=== PATIENT | male | born 1965 | race Caucasian/White ===

== ENCOUNTER → 2017-07-02 11:52 | Outpatient (CLI) | payer OTHER, SELFPAY ==
[2017-07-02 12:21] LABS: Add Manual Diff / Slide Review NO; Basophils Percent Auto 0.7 % (0-2); Eosinophils Percent Auto 2.5 % (2-4); Hematocrit 44.2 % (41-53); Hemoglobin 15.3 g/dL (13.5-17.5); Lymphocytes Percent Auto 29.8 % (25-40); Mean Corpuscular HGB Conc 34.7 % (30-36); Mean Corpuscular Volume 92.2 fL (80-100); Monocytes Percent Auto 9.4 % (3-14); Neutrophils Absolute Auto 2100 /uL (3000-5900); Neutrophils Percent Auto 57.6 % (50-75); Platelet Count 177 X10^3/uL (150-400); Red Blood Cell Count 4.79 X10^6/uL (4.5-5.9); Red Cell Distribution Width 13.2 % (11.6-14.8); White Blood Cell Count 3.6 X10^3/uL (4.5-11.0)
[2017-07-02 12:55] LABS: Alanine Aminotransferase 80 IU/L (21-72); Albumin 4.5 g/dL (3.5-5.0); Albumin Globulin Ratio 1.7 (1.0-2.8); Alkaline Phosphatase 75 U/L (38-126); Aspartate Aminotransferase 49 IU/L (17-59); Bilirubin Total 0.6 mg/dL (0.2-1.3); Calcium 9.5 mg/dL (8.4-10.2); Cholesterol 243 mg/dL (140-199); Estimated Glomerular Filt Rate > 60.0 mL/min (>60); Globulin 2.6 g/dL (1.7-4.1); Glucose 98 mg/dL (70-100); HDL Cholesterol 66 mg/dL (40-60); HEMOLYSIS < 15 (0-50); LDL Cholesterol Calculated 152 mg/dL (<100); Potassium 4.3 mmol/L (3.4-5.1); Sodium 140 mmol/L (137-145); Total Protein 7.1 g/dL (6.3-8.2); Triglycerides 123 mg/dL (35-150)
[2017-07-02 13:25] LABS: TSH w/ Reflex to FT4 2.95 uIU/mL (0.47-4.68)
[2017-07-06 10:26] LABS: Hepatitis A Antibody IgM NONREACTIVE; Hepatitis Acute Panel Interp 0.03; Hepatitis B Core Antibody IgM NONREACTIVE; Hepatitis B Surface Antigen NONREACTIVE; Hepatitis C Antibody NONREACTIVE
== END ==
PROVIDERS: PCP Family Medicine; Visit Provider Family Medicine
DX: E78.2 Mixed hyperlipidemia (principal); E06.3 Autoimmune thyroiditis; Z00.00 Encounter for general adult medical examination without abnormal findings
CPT/HCPCS: 36415; 80053; 80061; 80074; 84443; 85025

== ENCOUNTER → 2018-09-03 08:19 | Outpatient (CLI) | payer OTHER, SELFPAY ==
[2018-09-03 09:20] LABS: Add Manual Diff / Slide Review NO; Basophils Absolute Auto 0 /uL (0-100); Basophils Percent Auto 0.9 % (0-2); Eosinophils Absolute Auto 100 /uL (0-450); Eosinophils Percent Auto 2.7 % (2-4); Hematocrit 43.5 % (41-53); Hemoglobin 15.1 g/dL (13.5-17.5); Lymphocytes Absolute Auto 1100 /uL (1100-4500); Lymphocytes Percent Auto 30.6 % (25-40); Mean Corpuscular HGB Conc 34.7 % (30-36); Mean Corpuscular Hemoglobin 32.9 PG (26-34); Mean Corpuscular Volume 94.7 fL (80-100); Monocytes Absolute Auto 400 /uL (0-900); Monocytes Percent Auto 10.3 % (3-14); Neutrophils Absolute Auto 2000 /uL (1500-7000); Neutrophils Percent Auto 55.5 % (50-75); Platelet Count 206 X10^3/uL (150-400); Red Blood Cell Count 4.59 X10^6/uL (4.5-5.9); Red Cell Distribution Width 13.1 % (11.6-14.8); White Blood Cell Count 3.6 X10^3/uL (4.5-11.0)
[2018-09-03 09:34] LABS: Alanine Aminotransferase 58 IU/L (21-72); Albumin 4.5 g/dL (3.5-5.0); Albumin Globulin Ratio 1.6 (1.0-2.8); Alkaline Phosphatase 67 U/L (38-126); Aspartate Aminotransferase 43 IU/L (17-59); Bilirubin Total 0.6 mg/dL (0.2-1.3); Blood Urea Nitrogen 20 mg/dL (9-20); Calcium 9.5 mg/dL (8.4-10.2); Carbon Dioxide 30 mmol/L (22-32); Chloride 101 mmol/L (98-107); Cholesterol 216 mg/dL (140-199); Estimated Glomerular Filt Rate > 60.0 mL/min (>60); Globulin 2.8 g/dL (1.7-4.1); Glucose 92 mg/dL (70-100); HDL Cholesterol 56 mg/dL (40-60); HEMOLYSIS < 15 (0-50); LDL Cholesterol Calculated 135 mg/dL (<100); Potassium 4.3 mmol/L (3.4-5.1); Sodium 139 mmol/L (137-145); Total Protein 7.3 g/dL (6.3-8.2); Triglycerides 123 mg/dL (35-150)
[2018-09-03 10:02] LABS: Prostate Specific Antigen Scrn 0.394 ng/mL (0.1-4.0)
[2018-09-03 10:05] LABS: Thyroid Stimulating Hormone 2.85 uIU/mL (0.47-4.68)
== END ==
PROVIDERS: PCP Family Medicine; Visit Provider Family Medicine
DX: E06.3 Autoimmune thyroiditis (principal); E78.2 Mixed hyperlipidemia; Z00.00 Encounter for general adult medical examination without abnormal findings; Z12.5 Encounter for screening for malignant neoplasm of prostate
CPT/HCPCS: 36415; 80053; 80061; 84443; 85025; G0103

== ENCOUNTER → 2019-11-18 08:19 | Outpatient (CLI) | payer OTHER, SELFPAY ==
[2019-11-18 10:28] LABS: Add Manual Diff / Slide Review NO; Basophils Absolute Auto 0 /uL (0-100); Basophils Percent Auto 1.2 % (0-2); Eosinophils Absolute Auto 300 /uL (0-450); Eosinophils Percent Auto 8.1 % (2-4); Hematocrit 43.2 % (41-53); Hemoglobin 14.9 g/dL (13.5-17.5); Lymphocytes Absolute Auto 1100 /uL (1100-4500); Lymphocytes Percent Auto 27.3 % (25-40); Mean Corpuscular HGB Conc 34.6 % (30-36); Mean Corpuscular Volume 92.6 fL (80-100); Monocytes Absolute Auto 400 /uL (0-900); Monocytes Percent Auto 9.9 % (3-14); Neutrophils Absolute Auto 2100 /uL (1500-7000); Neutrophils Percent Auto 53.5 % (50-75); Platelet Count 209 X10^3/uL (150-400); Red Blood Cell Count 4.66 X10^6/uL (4.5-5.9); Red Cell Distribution Width 13.2 % (11.6-14.8); White Blood Cell Count 3.9 X10^3/uL (4.5-11.0)
[2019-11-18 11:25] LABS: Alanine Aminotransferase 33 IU/L (<50); Albumin 4.2 g/dL (3.5-5.0); Albumin Globulin Ratio 1.8 (1.0-2.8); Alkaline Phosphatase 75 U/L (38-126); Aspartate Aminotransferase 27 IU/L (17-59); BUN Creatinine Ratio 21.8 (6-22); Bilirubin Total 0.4 mg/dL (0.2-1.3); Blood Urea Nitrogen 22 mg/dL (9-20); Calcium 9.4 mg/dL (8.4-10.2); Carbon Dioxide 30 mmol/L (22-32); Chloride 104 mmol/L (98-107); Cholesterol 188 mg/dL (140-199); Estimated Glomerular Filt Rate > 60.0 mL/min (>60); Globulin 2.4 g/dL (1.7-4.1); Glucose 98 mg/dL (70-100); HDL Cholesterol 46 mg/dL (40-60); HEMOLYSIS < 15 (0-50); LDL Cholesterol Calculated 120 mg/dL (<100); Potassium 4.3 mmol/L (3.4-5.1); Sodium 140 mmol/L (137-145); Total Protein 6.6 g/dL (6.3-8.2); Triglycerides 112 mg/dL (35-150)
[2019-11-18 11:48] LABS: Prostate Specific Antigen Scrn 0.368 ng/mL (0.1-4.0); Thyroid Stimulating Hormone 1.88 uIU/mL (0.47-4.68)
[2019-11-18 11:50] LABS: Testosterone 400 ng/dL (71.8-623)
== END ==
PROVIDERS: PCP Family Medicine; Referring Provider Family Medicine; Visit Provider Family Medicine
DX: Z12.5 Encounter for screening for malignant neoplasm of prostate (principal); E06.3 Autoimmune thyroiditis; E78.2 Mixed hyperlipidemia; N52.9 Male erectile dysfunction, unspecified
CPT/HCPCS: 36415; 80053; 80061; 84403; 84443; 85025; G0103

== ENCOUNTER 2020-03-11 14:04 | Emergency (ER) | payer OTHER, SELFPAY ==
[2020-03-11 14:09] VITALS: BP 130/75; PULSE 90; RESP 18; TEMP 36.4; O2SAT 96; BMI 32.1
--- NOTE | 2020-03-11 14:16 | ED_ITS ---
HPI - URI/Sore Throat General Chief Complaint: Upper Respiratory Symptoms Stated Complaint: covid test Time Seen by Provider: 03/11/20 14:06 Source: patient Mode of arrival: Ambulatory Limitations: no limitations History of Present Illness HPI Narrative: Patient is a 54-year-old male with history of anxiety and hyperlipidemia works as an EMS provider presenting for wanting COVID test. He received his 2nd dose of the vaccine 3 days ago he said after the vaccine he felt achy with fever and cough. Symptoms lasted for approximately 36 hours and have now resolved. MD Complaint: fever and cough Onset (ago): day(s) (2) Duration: improved Related Data Home Medications Medication Instructions Recorded Confirmed loxapine succinate 5 mg capsule 5 mg PO BID 11/26/19 02/24/20 Previous Rx's Medication Instructions Recorded escitalopram oxalate 20 mg tablet 10 mg PO DAILY #90 tab 11/26/19 quetiapine 50 mg tablet 50 mg PO BEDTIME #30 tab 11/26/19 trazodone 100 mg tablet 100 mg PO BEDTIME PRN #30 tab 11/26/19 simvastatin 40 mg tablet 40 mg PO HS #90 tab 01/01/20 levothyroxine 25 mcg tablet 25 mcg PO QAM #90 tab 01/14/20 sildenafil (pulm.hypertension) 20 See Rx Instructions .ROUTE 02/02/20 mg tablet .COMPLEX #50 tablet disulfiram 250 mg tablet 250 mg PO DAILY #30 tab 02/08/20 propranolol 10 mg tablet 10 mg PO TID PRN #90 tab 03/01/20 Allergies Allergy/AdvReac Type Severity Reaction Status Date / Time No Known Drug Allergies Allergy Verified 02/24/20 16:09 Review of Systems Review of Systems Narrative: GENERAL: Denies chills, fatigue, malaise, fever, sweats, travel HEENT: Denies sinus pain, ear pain, sore throat, difficulty swallowing, neck pain RESPIRATORY: Denies dyspnea, cough, wheezing, hemoptysis, sputum. CARDIOVASCULAR: Denies chest pain, palpitations, orthopnea, edema GASTROINTESTINAL: Denies nausea, vomiting, abdominal pain, diarrhea, constipation, melena. : Denies dysuria, frequency, incontinence, hematuria, urinary retention, flank pain. MUSCULOSKELETAL: Denies weakness, joint pain, or bony pain SKIN: No rash, no erythema, no pruritus NEUROLOGIC: Denies weakness, dizziness, headache, numbness, change in speech, confusion PSYCHIATRIC: No concerning psychosocial issues. 12 point review of systems is negative except for those stated above and HPI Patient History Medical History Acquired autoimmune hypothyroidism Generalized anxiety disorder (11/11/14) Mixed hyperlipidemia (11/11/14) Surgical History Anesthesia History of bone graft (~12/2012) Family History Mother Hypertension Social History marital status: Smoking Status: Never smoker alcohol intake: current (3-4 DRINKS 5 DAYS A WEEK ) substance use type: does not use Smoking Status: Never smoker Substance Use Type: does not use Exam Initial Vital Signs Initial Vital Signs: Vital Signs Temperature 97.6 F 03/11/20 14:09 Pulse Rate 90 03/11/20 14:09 Respiratory Rate 18 03/11/20 14:09 Blood Pressure 130/75 03/11/20 14:09 Pulse Oximetry 96 03/11/20 14:09 GENERAL: Well-appearing, well-nourished and in no acute distress. CARDIOVASCULAR: peripheral pulses in tact, cap refill <2 sec RESPIRATORY: No respiratory distress, speaks in full sentences without difficulty EXTREMITIES: Normal range of motion, no clubbing or edema. Neurovascularly intact NEUROLOGICAL: Cranial nerves II through XII grossly intact. Normal gait and s peech. SKIN: Warm, dry, no petechiae, no rashes or lesions. Course Orders Ordered: ED Orders 03/11/20 14:07 COVID19 Stat Vital Signs Vital signs: Vital Signs - 8 hr 03/11/20 14:09 Temperature 97.6 F Pulse Rate 90 Respiratory Rate 18 Blood Pressure 130/75 Pulse Oximetry 96 MDM - URI/Sore Throat Lab Data Labs: Lab Results 03/11/20 Range/Units 14:10 SARS-CoV-2 (PCR) Negative (Negative) MDM Narrative Medical decision making narrative: Patient is now completely asymptomatic. Likely vaccine reaction rather than COVID. COVID test is negative Discharge Plan Departure Patient Disposition: Home Clinical Impression: Vaccine reaction Qualifiers: Encounter type: initial encounter Qualified Code(s): T50.Z95A - Adverse effect of other vaccines and biological substances, initial encounter Instructions: DI for COVID-19 (Suspected or Confirmed ) Activity Restrictions/Additional Instructions: *You have been diagnosed with vaccine reaction *What to do: Reaction was likely from the vaccine and not from COVID A COVID test is negative *Continue to take medications as directed *Follow up with your primary care provider in 2-3 days *Return to ER if you should have any new, worsening or concerning symptoms Prescriptions: No Action loxapine succinate 5 mg capsule 5 mg PO BID RF: 0 escitalopram oxalate 20 mg tablet 10 mg PO DAILY Qty: 90 RF: 3 quetiapine [Seroquel] 50 mg tablet 50 mg PO BEDTIME Qty: 30 RF: 0 trazodone 100 mg tablet 100 mg PO BEDTIME PRN (Reason: sleep) Qty: 30 RF: 3 disulfiram 250 mg tablet 250 mg PO DAILY Qty: 30 RF: 0 simvastatin 40 mg tablet 40 mg PO HS Qty: 90 RF: 2 levothyroxine [Synthroid] 25 mcg tablet 25 mcg PO QAM Qty: 90 RF: 3 sildenafil (pulm.hypertension) 20 mg tablet See Rx Instructions .ROUTE .COMPLEX Qty: 50 RF: 8 propranolol 10 mg tablet 10 mg PO TID PRN (Reason: anxiety) Qty: 90 RF: 1 Referrals: John Villarreal MD [Primary Care Provider] -
[2020-03-11 14:29] LABS: COVID19 -Nasal RAPID Negative (Negative)
== END 2020-03-11 14:46 | disposition home or self-care (01) ==
PROVIDERS: Emergency Provider Emergency Medicine; PCP Family Medicine
DX: R50.9 Fever, unspecified (principal); R05 Cough; T50.Z95A Adverse effect of other vaccines and biological substances, initial encounter; E78.5 Hyperlipidemia, unspecified; F41.9 Anxiety disorder, unspecified; Z20.822 Contact with and (suspected) exposure to COVID-19
CPT/HCPCS: 87635; 99281; 99282; C9803

== ENCOUNTER → 2020-12-16 14:55 | Outpatient (CLI) | payer OTHER, SELFPAY ==
[2020-12-16] MEDS: COVID-19 VACC #3, MRNA(MOD) 50 MCG/0.25 ML VIAL IM (14:58)
== END ==
PROVIDERS: PCP Family Medicine; Visit Provider Internal Medicine
DX: Z23 Encounter for immunization (principal)
CPT/HCPCS: 0013A; 91301

== ENCOUNTER → 2021-02-03 09:07 | Outpatient (CLI) | payer OTHER, SELFPAY ==
[2021-02-03 09:56] LABS: Add Manual Diff / Slide Review NO; Basophils Absolute Auto 0 /uL (0-100); Basophils Percent Auto 0.7 % (0-2); Eosinophils Absolute Auto 200 /uL (0-450); Eosinophils Percent Auto 4.1 % (2-4); Hematocrit 45.7 % (41-53); Hemoglobin 15.8 g/dL (13.5-17.5); Lymphocytes Absolute Auto 1400 /uL (1100-4500); Lymphocytes Percent Auto 36.7 % (25-40); Mean Corpuscular HGB Conc 34.6 % (30-36); Mean Corpuscular Hemoglobin 32.3 PG (26-34); Mean Corpuscular Volume 93.2 fL (80-100); Monocytes Absolute Auto 500 /uL (0-900); Monocytes Percent Auto 12.3 % (3-14); Neutrophils Absolute Auto 1800 /uL (1500-7000); Neutrophils Percent Auto 46.2 % (50-75); Platelet Count 195 X10^3/uL (150-400); White Blood Cell Count 3.9 X10^3/uL (4.5-11.0)
[2021-02-03 10:42] LABS: Alanine Aminotransferase 64 IU/L (<50); Albumin 4.8 g/dL (3.5-5.0); Albumin Globulin Ratio 1.9 (1.0-2.8); Alkaline Phosphatase 73 U/L (38-126); Aspartate Aminotransferase 41 IU/L (17-59); BUN Creatinine Ratio 18.8 (6-22); Bilirubin Total 0.5 mg/dL (0.2-1.3); Blood Urea Nitrogen 18 mg/dL (9-20); Calcium 9.9 mg/dL (8.4-10.2); Carbon Dioxide 28 mmol/L (22-32); Chloride 102 mmol/L (98-107); Cholesterol 271 mg/dL (140-199); Estimated Glomerular Filt Rate > 60.0 mL/min (>60); Globulin 2.5 g/dL (1.7-4.1); Glucose 110 mg/dL (70-100); HDL Cholesterol 57 mg/dL (40-60); HEMOLYSIS < 15 (0-50); LDL Cholesterol Calculated 189 mg/dL (<100); Potassium 4.5 mmol/L (3.4-5.1); Sodium 136 mmol/L (137-145); Total Protein 7.3 g/dL (6.3-8.2); Triglycerides 127 mg/dL (35-150)
[2021-02-03 10:57] LABS: Free T3, Triiodothyronine Free 4.76 pg/mL (2.77-5.27)
[2021-02-03 11:10] LABS: Prostate Specific Antigen 0.518 ng/mL (0.10-4.00)
== END ==
PROVIDERS: PCP Family Medicine; Referring Provider Family Medicine; Visit Provider Family Medicine
DX: E03.9 Hypothyroidism, unspecified (principal); E78.2 Mixed hyperlipidemia
CPT/HCPCS: 36415; 80053; 80061; 84153; 84443; 84481; 85025

== ENCOUNTER → 2021-02-09 15:53 | Outpatient (CLI) | payer OTHER, SELFPAY ==
[2021-02-09 17:24] LABS: Testosterone 361 ng/dL (71.8-623)
== END ==
PROVIDERS: PCP Family Medicine; Visit Provider Family Medicine
DX: E03.9 Hypothyroidism, unspecified (principal); R53.83 Other fatigue
CPT/HCPCS: 36415; 84403

== ENCOUNTER → 2022-02-15 10:15 | Outpatient (CLI) | payer OTHER, SELFPAY ==
[2022-02-15 12:55] LABS: TSH w/ Reflex to FT4 3.41 uIU/mL (0.47-4.68)
== END ==
PROVIDERS: PCP Family Medicine; Referring Provider Family Medicine; Visit Provider Family Medicine
DX: E06.3 Autoimmune thyroiditis (principal)
CPT/HCPCS: 36415; 84443